=== PATIENT | female | born 1990 | race Caucasian/White ===

== ENCOUNTER 2022-01-25 13:17 | Inpatient (IN) ==
[2022-01-25] MEDS ORDERED: Dinoprostone 10 MG VAG.SUPP VAGINAL ONE (14:28)
[2022-01-25] MEDS ORDERED: Lactated Ringers 1000 ml BAG 1,000 ML IV ONE (14:28)
[2022-01-25] MEDS ORDERED: Buffered Lidocaine 1% SYRIN 1 ml INTRADERM ONE (14:28)
[2022-01-25 15:44] LABS: ABS Lymphocytes 0.9 10^3/ul (1.0-4.8); ABS Monocytes 0.7 10^3/ul (0-0.8); ABS Neutrophils 7.3 10^3/ul (1.5-7.7); Eosinophil % 0.4 %; Hematocrit 36 % (35-47); Hemoglobin 12.7 g/dL (12.0-16.0); Lymphocyte % 10.3 %; Mean Corpuscular HGB Conc 35 g/dL (31-36); Mean Corpuscular Hemoglobin 30 pg (27-31); Mean Corpuscular Volume 87 fL (80-97); Mean Platelet Volume 8.3 fL (7.4-10.4); Platelet Count 234 10^3/uL (150-450); Red Blood Count 4.16 10^6 /uL (3.70-4.87); Red Cell Distribution Width 14 % (10-15)
[2022-01-25 15:59] LABS: Albumin 3.8 g/dL (3.2-5.2); Calcium 9.3 mg/dL (8.6-10.3); Potassium 3.4 mmol/L (3.5-5.0); Total Bilirubin 0.4 mg/dL (0.2-1.0)
[2022-01-25 16:05] LABS: Albumin/Globulin Ratio 1.2 (1-3); Globulin 3.2 g/dL (2-4); Uric Acid 4.5 mg/dL (2.3-6.6); eGFR CKD-EPI 120.8 (>60)
[2022-01-25 16:25] LABS: Urine Benzodiazepine Screen None Detected (None Detect); Urine Cannabinoids Screen None Detected (None Detect); Urine Opiates Screen None Detected (None Detect)
[2022-01-25] MEDS ORDERED: Promethazine INJ(RESTRICTED) 25 MG/ML 1 ml VIAL IV PRN (22:29)
[2022-01-25] MEDS ORDERED: Nalbuphine 10 MG/ML 1 ML VIAL IV PRN (22:29)
[2022-01-25] MEDS ORDERED: Calcium Carb (TUMS) 500 mg CHEW TAB PO PRN (22:42)
[2022-01-26] MEDS ORDERED: Promethazine INJ(RESTRICTED) 25 MG/ML 1 ml VIAL IM ONE (21:00)
[2022-01-26] MEDS ORDERED: Nalbuphine 10 MG/ML 1 ML VIAL IM ONE (21:00)
[2022-01-26 22:28] LABS: ABS Eosinophils 0.1 10^3/ul (0-0.6); ABS Lymphocytes 1.2 10^3/ul (1.0-4.8); ABS Monocytes 0.6 10^3/ul (0-0.8); ABS Neutrophils 5.7 10^3/ul (1.5-7.7); Hematocrit 36 % (35-47); Hemoglobin 12.4 g/dL (12.0-16.0); Lymphocyte % 15.8 %; Mean Corpuscular HGB Conc 34 g/dL (31-36); Mean Corpuscular Hemoglobin 30 pg (27-31); Mean Corpuscular Volume 87 fL (80-97); Mean Platelet Volume 8.4 fL (7.4-10.4); Nucleated Red Blood Cells % 0.1; Platelet Count 224 10^3/uL (150-450); Red Blood Count 4.16 10^6 /uL (3.70-4.87); Red Cell Distribution Width 14 % (10-15); White Blood Count 7.6 10^3/uL (3.5-10.8)
[2022-01-26 22:56] LABS: Albumin 3.8 g/dL (3.2-5.2); Albumin/Globulin Ratio 1.4 (1-3); Globulin 2.7 g/dL (2-4); Potassium 3.3 mmol/L (3.5-5.0); Total Bilirubin 0.4 mg/dL (0.2-1.0); Total Protein 6.5 g/dL (6.4-8.9); Uric Acid 4.7 mg/dL (2.3-6.6); eGFR CKD-EPI 117.8 (>60)
[2022-01-27] MEDS ORDERED: Lidocaine 4% GEL 10 GM TUBE TOPICAL ONE (08:50)
[2022-01-27] MEDS ORDERED: Lidocaine 2% JELLY 6 ML TOPICAL ONE (09:05)
[2022-01-27] MEDS ORDERED: Dinoprostone 10 MG VAG.SUPP VAGINAL ONE (19:17)
[2022-01-27] MEDS ORDERED: Nalbuphine 10 MG/ML 1 ML VIAL IV ONE (21:00)
[2022-01-27] MEDS ORDERED: Promethazine INJ(RESTRICTED) 25 MG/ML 1 ml VIAL IV ONE (21:00)
[2022-01-27 22:07] LABS: ABS Eosinophils 0.1 10^3/ul (0-0.6); ABS Lymphocytes 1.2 10^3/ul (1.0-4.8); ABS Monocytes 0.7 10^3/ul (0-0.8); ABS Neutrophils 5.2 10^3/ul (1.5-7.7); Eosinophil % 1.2 %; Hematocrit 33 % (35-47); Hemoglobin 11.6 g/dL (12.0-16.0); Mean Corpuscular HGB Conc 35 g/dL (31-36); Mean Corpuscular Hemoglobin 30 pg (27-31); Mean Corpuscular Volume 86 fL (80-97); Mean Platelet Volume 8.3 fL (7.4-10.4); Platelet Count 221 10^3/uL (150-450); Red Blood Count 3.85 10^6 /uL (3.70-4.87); Red Cell Distribution Width 14 % (10-15); White Blood Count 7.2 10^3/uL (3.5-10.8)
[2022-01-27 22:33] LABS: Albumin 3.4 g/dL (3.2-5.2); Albumin/Globulin Ratio 1.3 (1-3); Calcium 9.1 mg/dL (8.6-10.3); Globulin 2.6 g/dL (2-4); Potassium 3.7 mmol/L (3.5-5.0); Total Bilirubin 0.3 mg/dL (0.2-1.0); eGFR CKD-EPI 125.4 (>60)
[2022-01-27 23:06] LABS: Uric Acid 4.6 mg/dL (2.3-6.6)
[2022-01-28] MEDS ORDERED: Lidocaine 2% JELLY 5 ML TUBE LIDO2GEL7 TOPICAL PRN (08:16)
[2022-01-28] MEDS ORDERED: Nalbuphine 10 MG/ML 1 ML VIAL IV ONE ×2 (09:53→20:50)
[2022-01-28] MEDS ORDERED: Promethazine INJ(RESTRICTED) 25 MG/ML 1 ml VIAL IV ONE ×2 (09:53→20:51)
[2022-01-28] MEDS ORDERED: Sodium Phosphate ADULT ENEMA 133 ML BTL PR ONE (20:50)
[2022-01-28 22:02] LABS: ABS Eosinophils 0.1 10^3/ul (0-0.6); ABS Lymphocytes 1.3 10^3/ul (1.0-4.8); ABS Monocytes 0.8 10^3/ul (0-0.8); ABS Neutrophils 5.1 10^3/ul (1.5-7.7); Eosinophil % 1.1 %; Hematocrit 34 % (35-47); Hemoglobin 11.6 g/dL (12.0-16.0); Lymphocyte % 17.7 %; Mean Corpuscular HGB Conc 34 g/dL (31-36); Mean Corpuscular Hemoglobin 30 pg (27-31); Mean Corpuscular Volume 86 fL (80-97); Mean Platelet Volume 8.2 fL (7.4-10.4); Platelet Count 212 10^3/uL (150-450); Red Blood Count 3.92 10^6 /uL (3.70-4.87); Red Cell Distribution Width 14 % (10-15); White Blood Count 7.4 10^3/uL (3.5-10.8)
[2022-01-28 22:17] LABS: Albumin 3.1 g/dL (3.2-5.2); Albumin/Globulin Ratio 1.2 (1-3); Calcium 8.7 mg/dL (8.6-10.3); Globulin 2.6 g/dL (2-4); Potassium 3.8 mmol/L (3.5-5.0); Total Bilirubin 0.3 mg/dL (0.2-1.0); Total Protein 5.7 g/dL (6.4-8.9); Uric Acid 4.5 mg/dL (2.3-6.6); eGFR CKD-EPI 125.9 (>60)
[2022-01-29] MEDS ORDERED: Oxytocin in LR 0 UNITS/0 ML BAG IVPB ONE (05:11)
[2022-01-29] MEDS ORDERED: Oxytocin in LR 20 UNITS/1,000 ML BAG IVPB ONE (05:20)
[2022-01-29] MEDS ORDERED: Bupivacaine 0.25% SDV PF 10 ML VIAL INJ ONE (05:46)
[2022-01-29] MEDS ORDERED: fentaNYL 100 mcg/2 ml 50 MCG/ML VIAL ONE ×2 (05:46→05:50)
[2022-01-29] MEDS ORDERED: fentaNYL 100 mcg/2 ml 50 MCG/ML VIAL IV SLOW PU ONE (05:53)
[2022-01-29] MEDS ORDERED: Sodium Citrate/Citric Acid LIQ 15 ML UDC PO PRN (07:31)
[2022-01-29] MEDS ORDERED: Lactated Ringers 1000 ml BAG 500 ML IV PRN ×3 (07:31→07:56)
[2022-01-29] MEDS ORDERED: Lactated Ringers 1000 ml BAG 1,000 ML IV ONE (07:31)
[2022-01-29] MEDS ORDERED: EPHEDrine (Pressors) 50 MG/ML VIAL IV PUSH PRN ×2 (07:31)
[2022-01-29] MEDS ORDERED: OBEPIDURAL (200 ML) 200 ML EPIDURAL SCH (08:00)
[2022-01-29] MEDS ORDERED: Lactated Ringers 1000 ml BAG 1,000 ML IV SCH ×2 (08:00→09:00)
[2022-01-29] MEDS ORDERED: Oxytocin in LR 20 UNITS/1,000 ML BAG IVPB SCH (08:15)
[2022-01-29] MEDS ORDERED: Dibucaine 1% OINT 28.35 GM TUBE PR PRN (08:53)
[2022-01-29] MEDS ORDERED: Witch Hazel PAD JAR TOPICAL PRN (08:53)
[2022-01-29] MEDS ORDERED: Phenylephrine 40 mcg/mL 10mL (400mcg) SYRINGE ONE (13:26)
[2022-01-29] MEDS ORDERED: Lidocaine 1% VIAL 10 MG/ML VIAL ONE (13:26)
[2022-01-29] MEDS ORDERED: EPHEDrine (Pressors) 50 MG/ML VIAL ONE (13:27)
[2022-01-30 05:53] LABS: ABS Eosinophils 0.1 10^3/ul (0-0.6); ABS Lymphocytes 1.1 10^3/ul (1.0-4.8); ABS Monocytes 0.7 10^3/ul (0-0.8); ABS Neutrophils 6.4 10^3/ul (1.5-7.7); Eosinophil % 0.8 %; Hematocrit 29 % (35-47); Lymphocyte % 13.8 %; Mean Corpuscular HGB Conc 35 g/dL (31-36); Mean Corpuscular Hemoglobin 30 pg (27-31); Mean Corpuscular Volume 87 fL (80-97); Mean Platelet Volume 7.9 fL (7.4-10.4); Nucleated Red Blood Cells % 0.1; Platelet Count 179 10^3/uL (150-450); Red Blood Count 3.32 10^6 /uL (3.70-4.87); Red Cell Distribution Width 14 % (10-15); White Blood Count 8.3 10^3/uL (3.5-10.8)
[2022-01-31 09:13] VITALS: BP 134/77
== END 2022-01-31 13:30 | disposition home or self-care (01) | DRG 560 ==
LOC: MCHOBOUT 13:17 → MCHOB 14:25
PROVIDERS: ADMIT Advanced Practice Midwife; ATTEND Midwife